=== PATIENT | male | born 1935 | race Caucasian/White ===

== ENCOUNTER → 2016-12-26 | Outpatient (CLI) | payer BC ==
[~2016-12-26] MED LIST: ALL300 PO; CALC1CHW90 PO; CMD2 PO; CMD3 PO; DONE1TAB26 PO; FLUC150T PO; METO50TA17 PO; ZCR40 PO
[2016-12-26 09:13] LABS: PROTHROMBIN TIME (PATIENT) 21.5 SECONDS (9.0-12.0)
== END ==
LOC: C.LABCC 08:08
PROVIDERS: ATTEND Internal Medicine
DX: I48.91 Unspecified atrial fibrillation (principal)

== ENCOUNTER → 2016-12-27 | Outpatient (CLI) | payer BC ==
[2016-12-27 09:11] LABS: INR 2.5 (0.9-1.1); PROTHROMBIN TIME (PATIENT) 27.7 SECONDS (9.0-12.0)
[2016-12-27 09:12] LABS: BLOOD UREA NITROGEN 22 mg/dl (7-18); BUN/CREATININE RATIO 15.4 (10-20); CALCIUM 8.9 mg/dl (8.5-10.1); CARBON DIOXIDE 25 mmol/L (21-32); CHLORIDE 112 mmol/L (98-107); GLUCOSE 95 mg/dl (70-99); POTASSIUM 3.5 mmol/L (3.5-5.1); SODIUM 142 mmol/L (136-145)
== END ==
LOC: C.LABCC 07:45
PROVIDERS: ATTEND Internal Medicine
DX: I48.91 Unspecified atrial fibrillation (principal); R60.9 Edema, unspecified; I42.9 Cardiomyopathy, unspecified

== ENCOUNTER → 2016-12-30 | Outpatient (CLI) | payer BC ==
[2016-12-30 11:02] LABS: BLOOD UREA NITROGEN 28 mg/dl (7-18); BUN/CREATININE RATIO 18.4 (10-20); CALCIUM 8.7 mg/dl (8.5-10.1); CARBON DIOXIDE 24 mmol/L (21-32); CHLORIDE 113 mmol/L (98-107); GLUCOSE 92 mg/dl (70-99); POTASSIUM 3.6 mmol/L (3.5-5.1); SODIUM 147 mmol/L (136-145)
[2016-12-30 11:33] LABS: ESTIMATED AVERAGE GLUCOSE 123 mg/dl; HA1C FLAG Normal (Normal)
== END ==
LOC: C.LABCC 09:35
PROVIDERS: ATTEND Internal Medicine
DX: E11.9 Type 2 diabetes mellitus without complications (principal); I10 Essential (primary) hypertension

== ENCOUNTER → 2017-01-03 | Outpatient (CLI) | payer BC ==
[2017-01-03 08:33] LABS: PROTHROMBIN TIME (PATIENT) 73.6 SECONDS (9.0-12.0)
[2017-01-03 08:48] LABS: INR 6.4 (0.9-1.1)
== END ==
LOC: C.LABCC 08:07
PROVIDERS: ATTEND Internal Medicine
DX: I48.91 Unspecified atrial fibrillation (principal)

== ENCOUNTER → 2017-01-04 | Outpatient (CLI) | payer BC ==
[2017-01-04 10:53] LABS: INR 1.9 (0.9-1.1); PROTHROMBIN TIME (PATIENT) 21.4 SECONDS (9.0-12.0)
== END ==
LOC: C.LABCC 09:04
PROVIDERS: ATTEND Internal Medicine
DX: I48.91 Unspecified atrial fibrillation (principal); R79.1 Abnormal coagulation profile

== ENCOUNTER → 2017-01-06 | Outpatient (CLI) | payer BC ==
[2017-01-06 08:29] LABS: BLOOD UREA NITROGEN 36 mg/dl (7-18); CALCIUM 8.7 mg/dl (8.5-10.1); CARBON DIOXIDE 24 mmol/L (21-32); CHLORIDE 112 mmol/L (98-107); GLUCOSE 106 mg/dl (70-99); SODIUM 143 mmol/L (136-145)
[2017-01-06 08:38] LABS: PROTHROMBIN TIME (PATIENT) 21.7 SECONDS (9.0-12.0)
== END ==
LOC: C.LABCC 07:57
PROVIDERS: ATTEND Internal Medicine
DX: I48.91 Unspecified atrial fibrillation (principal); R60.0 Localized edema; I10 Essential (primary) hypertension

== ENCOUNTER → 2017-01-09 | Outpatient (CLI) | payer BC ==
[2017-01-09 09:11] LABS: PROTHROMBIN TIME (PATIENT) 22.6 SECONDS (9.0-12.0)
== END ==
LOC: C.LABCC 08:38
PROVIDERS: ATTEND Internal Medicine
DX: I48.91 Unspecified atrial fibrillation (principal)

== ENCOUNTER → 2017-01-14 | Outpatient (CLI) | payer BC ==
[2017-01-14 08:32] LABS: BLOOD UREA NITROGEN 32 mg/dl (7-18); GLUCOSE 154 mg/dl (70-99)
[2017-01-14 08:33] LABS: BUN/CREATININE RATIO 24.7 (10-20); CALCIUM 9.1 mg/dl (8.5-10.1); CARBON DIOXIDE 23 mmol/L (21-32); CHLORIDE 109 mmol/L (98-107); POTASSIUM 3.6 mmol/L (3.5-5.1); SODIUM 141 mmol/L (136-145)
== END ==
LOC: C.LABCC 07:43
PROVIDERS: ATTEND Internal Medicine
DX: R60.9 Edema, unspecified (principal)

== ENCOUNTER → 2017-01-17 | Outpatient (CLI) | payer BC ==
[2017-01-17 08:19] LABS: PROTHROMBIN TIME (PATIENT) 21.7 SECONDS (9.0-12.0)
== END ==
LOC: C.LABCC 07:57
PROVIDERS: ATTEND Internal Medicine
DX: I48.91 Unspecified atrial fibrillation (principal)

== ENCOUNTER → 2017-01-24 | Outpatient (CLI) | payer BC ==
[2017-01-24 09:03] LABS: CHOLESTEROL/HDL RATIO 3.8; THYROID STIMULATING HORMONE 2.39 uIu/ml (0.300-4.500)
== END ==
LOC: C.LABCC 08:20
PROVIDERS: ATTEND Internal Medicine
DX: E03.9 Hypothyroidism, unspecified (principal); E78.5 Hyperlipidemia, unspecified

== ENCOUNTER → 2017-01-28 | Outpatient (CLI) | payer BC ==
[2017-01-28 08:09] LABS: INR 3.8 (0.9-1.1); PROTHROMBIN TIME (PATIENT) 42.5 SECONDS (9.0-12.0)
== END ==
LOC: C.LABCC 07:41
PROVIDERS: ATTEND Internal Medicine
DX: I48.91 Unspecified atrial fibrillation (principal)

== ENCOUNTER → 2017-01-30 | Outpatient (CLI) | payer BC ==
[2017-01-30 09:58] LABS: INR 2.5 (0.9-1.1); PROTHROMBIN TIME (PATIENT) 27.4 SECONDS (9.0-12.0)
== END ==
LOC: C.LABCC 08:58
PROVIDERS: ATTEND Internal Medicine
DX: I48.91 Unspecified atrial fibrillation (principal)

== ENCOUNTER → 2017-02-03 | Outpatient (CLI) | payer BC ==
[2017-02-03 09:29] LABS: INR 1.6 (0.9-1.1); PROTHROMBIN TIME (PATIENT) 17.7 SECONDS (9.0-12.0)
== END ==
LOC: C.LABCC 08:56
PROVIDERS: ATTEND Internal Medicine
DX: I48.91 Unspecified atrial fibrillation (principal)

== ENCOUNTER → 2017-02-05 | Outpatient (CLI) | payer BC ==
[2017-02-05 09:24] LABS: INR 1.4 (0.9-1.1); PROTHROMBIN TIME (PATIENT) 15.3 SECONDS (9.0-12.0)
== END ==
LOC: C.LABCC 08:37
PROVIDERS: ATTEND Internal Medicine
DX: I48.91 Unspecified atrial fibrillation (principal)

== ENCOUNTER → 2017-02-20 | Outpatient (CLI) | payer BC ==
[2017-02-20 08:42] LABS: INR 1.5 (0.9-1.1); PROTHROMBIN TIME (PATIENT) 16.8 SECONDS (9.0-12.0)
== END ==
LOC: C.LABCC 08:14
PROVIDERS: ATTEND Internal Medicine
DX: I48.91 Unspecified atrial fibrillation (principal)

== ENCOUNTER → 2017-02-27 | Outpatient (CLI) | payer BC ==
[2017-02-27 09:13] LABS: INR 2.4 (0.9-1.1); PROTHROMBIN TIME (PATIENT) 26.8 SECONDS (9.0-12.0)
== END ==
LOC: C.LABCC 08:28
PROVIDERS: ATTEND Internal Medicine
DX: I48.91 Unspecified atrial fibrillation (principal)

== ENCOUNTER → 2017-03-04 | Outpatient (CLI) | payer BC ==
[2017-03-04 08:42] LABS: INR 2.3 (0.9-1.1); PROTHROMBIN TIME (PATIENT) 25.8 SECONDS (9.0-12.0)
== END ==
LOC: C.LABCC 08:01
PROVIDERS: ATTEND Internal Medicine
DX: Z79.01 Long term (current) use of anticoagulants (principal)

== ENCOUNTER → 2017-03-19 | Outpatient (CLI) | payer BC ==
[2017-03-19 08:59] LABS: INR 1.5 (0.9-1.1); PROTHROMBIN TIME (PATIENT) 16.1 SECONDS (9.0-12.0)
== END ==
LOC: C.LABCC 08:23
PROVIDERS: ATTEND Internal Medicine
DX: I48.91 Unspecified atrial fibrillation (principal)

== ENCOUNTER → 2017-03-26 | Outpatient (CLI) | payer BC ==
[2017-03-26 08:47] LABS: PROTHROMBIN TIME (PATIENT) 30.9 SECONDS (9.0-12.0)
== END ==
LOC: C.LABCC 08:19
PROVIDERS: ATTEND Internal Medicine
DX: I48.91 Unspecified atrial fibrillation (principal)

== ENCOUNTER → 2017-04-03 | Outpatient (CLI) | payer BC ==
[~2017-04-03] MED LIST changes: +ACET325T96 PO; +ASCO500T16 PO; +ATOR-24 PO; +BISA10SU38 PR; +CARB25TA12 PO; +CHOL1000 PO; +CYAN100020 PO; +FURO-85 PO; +LEVO75TA PO; +LIQUID PROTEIN PO; +MOML PO; +MULTTAB63 PO; +NMN10 PO; +POTA20IN PO; +PRNJ PO; +SERT50TA PO; +SODIENE PR; +WARF4TAB PO
[2017-04-03 08:32] LABS: PROTHROMBIN TIME (PATIENT) 44.8 SECONDS (9.0-12.0)
[2017-04-03 08:44] LABS: INR 4.4 (0.9-1.1)
== END ==
LOC: C.LABCC 08:07
PROVIDERS: ATTEND Internal Medicine
DX: I48.1 Persistent atrial fibrillation (principal)

== ENCOUNTER 2017-04-08 07:22 | Emergency (ER) | payer BC ==
[~2017-04-08] VITALS: Ht 182.9 cm; Wt 97.8 kg
[~2017-04-08 07:22] MED LIST changes: -ACET325T96 PO; -ASCO500T16 PO; -ATOR-24 PO; -BISA10SU38 PR; -CARB25TA12 PO; -CHOL1000 PO; -CYAN100020 PO; -FURO-85 PO; -LEVO75TA PO; -LIQUID PROTEIN PO; -MOML PO; -MULTTAB63 PO; -NMN10 PO; -POTA20IN PO; -PRNJ PO; -SERT50TA PO; -SODIENE PR; -WARF4TAB PO
[2017-04-08 07:30] VITALS: O2SAT 98
[2017-04-08] MEDS ORDERED: METOPROLOL TARTRATE 1 MG/ML VIAL IV STA ×2 (07:32→07:56)
[2017-04-08 07:42] LABS: BASO % 0.3 %; BASO ABS # 0.02 K/uL (0-0.2); COMPLETE YES; EOS % 0.1 %; HEMATOCRIT 32.9 % (42-52); IG% 0.3 %; LYMPH % 6.9 %; LYMPH ABS # 0.54 K/uL (1.2-3.4); MEAN CELL VOLUME 92.9 fL (80-100); MEAN CORPUSCULAR HEMOGLOBIN 29.9 pg (25-34); MEAN CORPUSCULAR HGB CONC 32.2 g/dl (32-36); MEAN PLATELET VOLUME 10.5 fL (7.4-10.4); MONO % 1.7 %; NEUT % 90.7 %; PLATELET COUNT 226 K/uL (130-400); RED BLOOD COUNT 3.54 M/uL (4.7-6.1); WHITE BLOOD COUNT 7.85 K/uL (4.8-10.8)
--- NOTE | 2017-04-08 07:52 | EMERGENCY ROOM VISIT NOTE ---
History Report prepared by Toni: Kyalie John Under the Supervision of: Dr. Michelet Hatfield M.D. First contact with patient: 07:23 Stated Complaint: STROKE SYMPTOMS History of Present Illness The patient is a 82 year old male who presents to the Emergency Room with complaints of constant unresponsiveness with last known well time 10 hours DIRECTOR OF MATERIALS MANAGEMENT. The patient resides at [facility]. The nursing staff notes he fell 16 hours ago and they did "neuro checks" on him until 9 pm last night, about 10 hours DIRECTOR OF MATERIALS MANAGEMENT. The nursing staff found him unresponsive 1 hour DIRECTOR OF MATERIALS MANAGEMENT. The patient is noted as "full resuscitation." He is currently taking Coumadin. HPI is limited secondary to unresponsiveness. Source of History: nursing staff Onset: last known well 10 hours DIRECTOR OF MATERIALS MANAGEMENT Position: other (global ) Quality: other (unresponsiveness) Timing: constant Note: The patient is unresponsive. Review of Systems ROS is limited secondary to unresponsiveness. Past Medical & Surgical No pertinent past medical or past surgical history obtained secondary to unresponsiveness. Family History No pertinent family history obtained secondary to unresponsiveness. Social History Smoking Status: Former Smoker Marital Status: Housing Status: jail Occupation Status: retired Current/Historical Medications Scheduled Allopurinol (Allopurinol), 300 MG PO QAM Ascorbic Acid (Ascorbic Acid), 500 MG PO BID Atorvastatin (Lipitor), 40 MG PO HS Bisacodyl (Dulcolax), 1 SUPP IL UD Carbidopa/Levodopa (Sinemet 25MG/100MG), 0.5 TAB PO Q12 Cholecalciferol (Vitamin D3), 1,000 UNIT PO QAM Cyanocobalamin (Vitamin B12), 1,000 MCG PO QAM Levothyroxine Sodium (Synthroid), 75 MCG PO QAM Magnesium Hydroxide (Milk Of Magnesia), 30 ML PO UD Memantine (Namenda), 10 MG PO BID Metoprolol Tartrate (Metoprolol Tartrate), 50 MG PO BID Multiple Vitamins W/ Minerals (Therems M), 1 TAB PO DAILY Potassium Chloride (Potassium Chloride), 15 ML PO QAM Sertraline (Zoloft), 50 MG PO QAM Warfarin Sod (Coumadin), 2 MG PO SUN,MON,WED,FRI,SAT Warfarin Sodium (Coumadin), 4 MG PO TUE&THUR [Liquid Protein], 30 ML PO BID Scheduled PRN Acetaminophen Tab (Tylenol), 650 MG PO Q6H PRN for Pain Furosemide (Lasix), 20 MG PO Q2D PRN for EDEMA Prune Juice (Prune Juice ), 8 OZ PO UD PRN for Constipation Sodium Phosphate/Biphosphate (Fleet Enema), 1 EA IL UD PRN for Constipation Allergies Coded Allergies: No Known Allergies (Unverified , 04/08/17) Physical Exam Vital Signs Date Time Temp Pulse Resp B/P (MAP) Pulse Ox O2 Delivery O2 Flow Rate FiO2 04/08/17 10:04 96 18 114/89 100 04/08/17 10:04 98 18 114/87 100 04/08/17 09:37 100 125/81 100 Ambu-Bag 04/08/17 08:42 97 14 165/90 97 Room Air 04/08/17 08:42 101 10 98 04/08/17 08:37 109 6 98 04/08/17 08:32 116 18 165/90 95 04/08/17 08:27 99 10 155/121 96 04/08/17 08:25 90 14 155/121 96 Room Air 04/08/17 08:22 110 15 95 04/08/17 08:22 96 04/08/17 08:19 95 16 177/84 96 Room Air 04/08/17 08:17 96 8 177/84 97 04/08/17 08:12 104 14 170/104 96 Room Air 04/08/17 08:12 98 8 170/104 96 04/08/17 08:07 36.7 96 18 167/111 96 Room Air 04/08/17 08:07 106 10 98 04/08/17 08:05 173/117 04/08/17 08:02 94 13 95 04/08/17 07:57 127 22 165/111 96 04/08/17 07:56 113 18 165/111 99 Room Air 04/08/17 07:52 132 12 95 04/08/17 07:52 130 18 173/103 94 Room Air 04/08/17 07:50 110 173/103 04/08/17 07:48 173/103 04/08/17 07:47 112 16 04/08/17 07:32 112 04/08/17 07:32 113 12 163/93 04/08/17 07:30 154/107 04/08/17 07:30 98 Room Air Physical Exam GENERAL: Patient is in no acute distress. HEENT: No acute trauma, normocephalic atraumatic, mucous membranes moist, no nasal congestion, no scleral icterus. PERRL NECK: No stridor, no adenopathy, no meningismus, trachea is midline. LUNGS: Clear to auscultation bilaterally when listening anterior, no wheeze, no rhonchi, breath sounds equal. HEART: Irregular and tachycardic. No murmurs ABDOMEN: Soft, nontender, bowel sounds positive, no hernias, no peritonitis. EXTREMITIES: No cyanosis or edema, full range of motion of all the joints without pain or difficulty, no signs for acute trauma. NEUROLOGIC: Localizes to pain with left arm, eyes closed and somnolent, seems to spontaneously move left arm and left leg, not the right side. Some rigidity to right arm and leg - not flaccid. Appears to have a right facial droop. SKIN: No rash, no jaundice, no diaphoresis. Medical Decision & Procedures ER Provider Diagnostic Interpretation: Radiology results as stated below per my review and radiologist interpretation: HEAD WITHOUT CONTRAST (CT) CT DOSE: 614.27 mGy.cm HISTORY: Mental status change Stroke TECHNIQUE: Multiaxial CT images of the head were performed without the use of intravenous contrast. A dose lowering technique was utilized adhering to the principles of ALARA. Comparison: None. Findings: The paranasal sinuses and mastoid air cells are clear. Evidence for an acute left-sided subdural hematoma. This appears to be moderately complex possibly indicative of acute combined with subacute components. There is a maximum dimension of 1.7 cm. There is evidence for interhemispheric subdural extension. There is also lefttentorial and left temporal extension. There is moderate midline shift to the right of 9 mm. There is partial effacement of the left lateral ventricular system. There is suggestion of a small developing a right-sided subdural. This is best seen transaxial image 21 with a maximum thickness of 5 mm. There is possibly of a trace amount subarachnoid extension. Impression: 1. Left and to a lesser extent right sided subdural hematomas. 2. Midline shift to the right of 9 mm. 3. Intracranial hemorrhage extends to the peritentorial and left temporal lobe regions, as well as interhemispheric subdural extension.. The above report was generated using voice recognition software. It may contain grammatical, syntax or spelling errors. Electronically signed by: Fawad Schneider M.D. 04/08/2017 7:50 AM Dictated Date/Time: 04/08/2017 7:44 AM CHEST ONE VIEW PORTABLE CLINICAL HISTORY: Stroke mental status change COMPARISON STUDY: No previous studies for comparison. FINDINGS: Mild pulmonary edema. Mild cardiomegaly. Diaphragms are smooth. Slight blunting lateral costophrenic angles. IMPRESSION: Congestive failure versus pulmonary edema. The above report was generated using voice recognition software. It may contain grammatical, syntax or spelling errors. Electronically signed by: Fawad Schneider M.D. 04/08/2017 8:03 AM Dictated Date/Time: 04/08/2017 8:03 AM Laboratory Results 04/08/17 07:00 Red Blood Count 3.54, Mean Corpuscular Volume 92.9, Mean Corpuscular Hemoglobin 29.9, Mean Corpuscular Hemoglobin Concent 32.2, Mean Platelet Volume 10.5, Neutrophils (%) (Auto) 90.7, Lymphocytes (%) (Auto) 6.9, Monocytes (%) (Auto) 1.7, Eosinophils (%) (Auto) 0.1, Basophils (%) (Auto) 0.3, Neutrophils # (Auto) 7.13, Lymphocytes # (Auto) 0.54, Monocytes # (Auto) 0.13, Eosinophils # (Auto) 0.01, Basophils # (Auto) 0.02 04/08/17 07:00 Test 04/08/17 07:00 04/08/17 07:36 04/08/17 07:47 04/08/17 07:50 White Blood Count 7.85 K/uL (4.8-10.8) Red Blood Count 3.54 M/uL (4.7-6.1) Hemoglobin 10.6 g/dL (14.0-18.0) Hematocrit 32.9 % (42-52) Mean Corpuscular Volume 92.9 fL (80-100) Mean Corpuscular Hemoglobin 29.9 pg (25-34) Mean Corpuscular Hemoglobin Concent 32.2 g/dl (32-36) Platelet Count 226 K/uL (130-400) Mean Platelet Volume 10.5 fL (7.4-10.4) Neutrophils (%) (Auto) 90.7 % Lymphocytes (%) (Auto) 6.9 % Monocytes (%) (Auto) 1.7 % Eosinophils (%) (Auto) 0.1 % Basophils (%) (Auto) 0.3 % Neutrophils # (Auto) 7.13 K/uL (1.4-6.5) Lymphocytes # (Auto) 0.54 K/uL (1.2-3.4) Monocytes # (Auto) 0.13 K/uL (0.11-0.59) Eosinophils # (Auto) 0.01 K/uL (0-0.5) Basophils # (Auto) 0.02 K/uL (0-0.2) RDW Standard Deviation 54.6 fL (36.4-46.3) RDW Coefficient of Variation 16.2 % (11.5-14.5) Immature Granulocyte % (Auto) 0.3 % Immature Granulocyte # (Auto) 0.02 K/uL (0.00-0.02) Prothrombin Time 27.8 SECONDS (9.0-12.0) Prothromb Time International Ratio 2.7 (0.9-1.1) Activated Partial Thromboplast Time 37.8 SECONDS (21.0-31.0) Partial Thromboplastin Ratio 1.5 Estimated GFR () 69.3 Estimated GFR (Non- 59.8 BUN/Creatinine Ratio 20.8 (10-20) Calcium Level 8.5 mg/dl (8.5-10.1) Magnesium Level 2.2 mg/dl (1.8-2.4) Total Bilirubin 1.1 mg/dl (0.2-1) Direct Bilirubin 0.3 mg/dl (0-0.2) Aspartate Amino Transf (AST/SGOT) 18 U/L (15-37) Alanine Aminotransferase (ALT/SGPT) 12 U/L (12-78) Alkaline Phosphatase 114 U/L (45-117) Total Creatine Kinase 31 U/L (39-308) Creatine Kinase MB 0.6 ng/ml (0.5-3.6) Creatine Kinase MB Ratio 1.9 (0-3.0) Troponin I < 0.015 ng/ml (0-0.045) Total Protein 7.6 gm/dl (6.4-8.2) Albumin 2.9 gm/dl (3.4-5.0) Bedside Prothrombin Time INR 3.6 (0.9-1.1) Bedside Glucose 159 mg/dl (70-99) Urine Color YELLOW Urine Appearance CLEAR (CLEAR) Urine pH 6.0 (4.5-7.5) Urine Specific Rice 1.022 (1.000-1.030) Urine Protein 1+ (NEG) Urine Glucose (UA) NEG (NEG) Urine Ketones 1+ (NEG) Urine Occult Blood TRACE (NEG) Urine Nitrite POS (NEG) Urine Bilirubin NEG (NEG) Urine Urobilinogen NEG (NEG) Urine Leukocyte Esterase SMALL (NEG) Urine WBC (Auto) 10-30 /hpf (0-5) Urine RBC (Auto) 0-4 /hpf (0-4) Urine Hyaline Casts (Auto) 1-5 /lpf (0-5) Urine Epithelial Cells (Auto) 0-5 /lpf (0-5) Urine Bacteria (Auto) 2+ (NEG) Test 04/08/17 08:07 Bedside Hemoglobin 10.5 g/dl (14.0-18.0) Bedside Hematocrit 31 % (42-52) Bedside Sodium 146 mEq/L (135-144) Bedside Potassium 3.5 mEq/L (3.3-5.0) Bedside Chloride 110 mEq/L (101-112) Bedside Total CO2 23 mEq/l (24-31) Anion Gap 18.0 mmol/L (16-25) Bedside Blood Urea Nitrogen 22 mg/dl (7-18) Bedside Creatinine 1.1 mg/dl (0.6-1.3) Bedside Glucose (other) 166 mg/dl (70-99) Bedside Ionized Calcium (Giovanny) 1.16 mmol/l (1.12-1.32) Laboratory results reviewed by me. Medications Administered Medications (Trade) Dose Ordered Sig/Maryan Route Start Time Stop Time Status Last Admin Dose Admin Metoprolol Tartrate (Lopressor Iv) 5 mg NOW STAT IV 04/08/17 07:32 04/08/17 07:34 DC 04/08/17 07:50 5 MG Phytonadione 10 mg/Sodium Chloride 51 ml @ 102 mls/hr ONE ONCE IV 04/08/17 08:00 04/08/17 08:29 DC 04/08/17 08:09 102 MLS/HR Metoprolol Tartrate (Lopressor Iv) 10 mg NOW STAT IV 04/08/17 07:56 04/08/17 07:57 DC 04/08/17 08:22 5 MG Prothrombin Complex Concent (Human) 2500 unit/ Syringe 100 ml @ 10 mls/min TODAY@0800 IV 04/08/17 08:00 04/08/17 10:35 DC 04/08/17 08:11 10 MLS/MIN Levetiracetam 1000 mg/Dextrose 110 ml @ 420 mls/hr NOW STAT IV 04/08/17 08:15 04/08/17 08:30 DC 04/08/17 08:25 420 MLS/HR Propofol (Diprivan Iv Emulsion 100ml Vial) 1 dose STK-MED ONCE IV 04/08/17 09:19 04/08/17 09:20 DC 04/08/17 09:19 1 DOSE Miscellaneous Information (Nursing Verbal Med Order) 1 ea ONE ONCE N/A 04/08/17 09:30 04/08/17 09:31 DC 04/08/17 09:33 1 EA ECG Indication: other (unresponsiveness) Rate (beats per minute): 127 Rhythm: atrial fibrillation Findings: no acute ischemic change (No obvious acute ischemic changes ), other (Significant baseline artifact) ED Course 0727: The patient was evaluated in room A2. A complete history and physical exam was performed. 0732: Ordered Metoprolol Tartrate 5 mg IV 0750: I reassessed the patient at this time. I spoke with the patient's . I discussed the results and treatment plan with the patient's . I answered all pertaining questions that the had. The expressed understanding and verbalized agreement. The patient will be transferred to [facility]. 0756: Ordered Metoprolol Tartrate 5 mg IV 0800: Ordered Phytonadione 10 mg/Sodium Chloride 51 ml @ 102 mls/hr IV 0807: I spoke with Dr. Rust [place] neurosurgeon. We discussed the patients case. He agrees with the treatment plan. He accepted the patient for transfer. 0815: Ordered Levetiracetam 110 ml @ 420 mls/hr IV 0820: I reassessed the patient at this time. His vitals have improved. 0851: I reassessed the patient at this time. Patient will be transferred. 0915: I reassessed the patient at this time. Patient is being transferred at this time. Medical Decision The patient is a 82 year old male who presents to the ED with complaints of unresponsiveness. Differential diagnoses considered include intracranial bleeding, stroke, infection, electrolyte imbalance, anemia, pneumonia, and UTI. There is no leukocytosis or concerning anemia. No significant electrolyte abnormality, kidney failure or hepatitis. EKG shows a rapid A. fib, no acute ischemia. Cardiac enzyme testing times one is not consistent with acute cardiac injury. Chest film shows presumed CHF versus chronic parenchymal congestion. No pneumonia. Brain CT shows a subdural hematoma on the left with about 9 mm of midline shift. There was some subarachnoid blood noted as well. Urinalysis is suggestive of infection, urine culture is pending. INR is elevated at around 3. The patient presents with a change in mental status, he is on Coumadin and suffered a fall last evening. He has intracranial bleeding which I think explains the mental status change. The patient was aggressively managed. He received IV vitamin K and IV PCC. He did receive IV Lopressor to aid in heart rate and blood pressure control. I spoke to the neurosurgeon at [place]. The patient is being sent there by helicopter. He will likely require surgical intervention for the subdural hematoma. The neurosurgeon did ask for the addition of IV Keppra, no other intervention here in our ER was felt emergent/needed. The patient was maintaining his airway nicely, there was no drop of the O2 saturation. His blood pressure and heart rate improved with the Lopressor. I had a long talk with the patient's , she is aware of the circumstances. The helicopter crew arrived and did decide to intubate the patient prior to transport. This apparently was accomplished without incident. Head Trauma GCS Score: 8 Medication Reconcilliation Current Medication List: was personally reviewed by me Blood Pressure Screening Patient's blood pressure: Elevated blood pressure Blood pressure disposition: Referred to PCP Consults Time Called: 075 Consulting Physician: [place] [facility] neurosurgeon Returned Call: [phone] I spoke with [place] [facility] neurosurgeon. We discussed the patients case. He agrees with the treatment plan. He accepted the patient for transfer. Impression Primary Impression: Subdural hematoma Additional Impressions: Change in mental status Coagulopathy Rapid atrial fibrillation Critical Care I have personally spent greater than 43 minutes of critical care time in the direct management of this patient. This includes bedside care, interpretation of diagnostic studies, and testing, discussion with consultants, patient, and family members, and other required patient management activities. This 43 minutes is in excess of all separately billable procedures. Scribe Attestation The scribe's documentation has been prepared under my direction and personally reviewed by me in its entirety. I confirm that the note above accurately reflects all work, treatment, procedures, and medical decision making performed by me. Departure Information Dispostion Transfer Acute Care Facility Referrals [place], Juan (PCP) Problem Qualifiers
[2017-04-08 07:54] LABS: INR 2.7 (0.9-1.1); PARTIAL THROMBOPLASTIN RATIO 1.5; PROTHROMBIN TIME (PATIENT) 27.8 SECONDS (9.0-12.0)
[2017-04-08 08:00] LABS: ALT/SGPT 12 U/L (12-78); BLOOD UREA NITROGEN 24 mg/dl (7-18); BUN/CREATININE RATIO 20.8 (10-20); CALCIUM 8.5 mg/dl (8.5-10.1); CARBON DIOXIDE 24 mmol/L (21-32); CHLORIDE 110 mmol/L (98-107); CREATININE 1.15 mg/dl (0.60-1.40); GLUCOSE 163 mg/dl (70-99); MAGNESIUM 2.2 mg/dl (1.8-2.4); POTASSIUM 3.2 mmol/L (3.5-5.1); SODIUM 144 mmol/L (136-145)
[2017-04-08] MEDS ORDERED: ACET325T96 PO (08:00)
[2017-04-08] MEDS ORDERED: PRNJ PO (08:00)
[2017-04-08] MEDS ORDERED: PHYTONADIONE INJ 10 MG in SODIUM CHLORIDE 0.9% 50ML 50 ML IV ONE (08:00)
[2017-04-08] MEDS ORDERED: PROTHROMBIN COMP CONC- KCENTRA 2,500 UNIT in SYRINGE 0 ML IV SCH (08:00)
[2017-04-08] MEDS ORDERED: LIQUID PROTEIN PO (08:00)
[2017-04-08] MEDS ORDERED: MOML PO (08:04)
[2017-04-08] MEDS ORDERED: SERT50TA PO (08:04)
[2017-04-08 08:05] LABS: ALKALINE PHOSPHATASE 114 U/L (45-117); AST/SGOT 18 U/L (15-37); CKMB/CK RATIO 1.9 (0-3.0)
--- NOTE | 2017-04-08 08:05 | DIAGNOSTIC IMAGING REPORT ---
CHEST ONE VIEW PORTABLE CLINICAL HISTORY: Stroke mental status change COMPARISON STUDY: No previous studies for comparison. FINDINGS: Mild pulmonary edema. Mild cardiomegaly. Diaphragms are smooth. Slight blunting lateral costophrenic angles. IMPRESSION: Congestive failure versus pulmonary edema. The above report was generated using voice recognition software. It may contain grammatical, syntax or spelling errors. Electronically signed by: Fawad Schneider M.D. 04/08/2017 8:03 AM Dictated Date/Time: 04/08/2017 8:03 AM
[2017-04-08] MEDS ORDERED: ASCO500T16 PO (08:06)
[2017-04-08] MEDS ORDERED: CHOL1000 PO (08:06)
[2017-04-08] MEDS ORDERED: MULTTAB63 PO (08:06)
[2017-04-08] MEDS ORDERED: CYAN100020 PO (08:06)
[2017-04-08 08:07] VITALS: TEMP 36.7; Ht 182.9 cm; Wt 97.8 kg
[2017-04-08] MEDS ORDERED: ATOR-24 PO (08:08)
[2017-04-08] MEDS ORDERED: CARB25TA12 PO (08:10)
[2017-04-08] MEDS ORDERED: WARF4TAB PO (08:13)
[2017-04-08] MEDS ORDERED: LEVETIRACETAM IV 1,000 MG in DEXTROSE 5% 100ML 100 ML IV STA (08:15)
[2017-04-08] MEDS ORDERED: BISA10SU38 PR (08:17)
[2017-04-08] MEDS ORDERED: POTA20IN PO (08:17)
[2017-04-08] MEDS ORDERED: SODIENE PR (08:17)
[2017-04-08] MEDS ORDERED: FURO-85 PO (08:17)
[2017-04-08] MEDS ORDERED: NMN10 PO (08:18)
[2017-04-08] MEDS ORDERED: LEVO75TA PO (08:18)
[2017-04-08 08:20] LABS: ISTAT CREATININE 1.1 mg/dl (0.6-1.3); ISTAT HEMOGLOBIN 10.5 g/dl (14.0-18.0); ISTAT IONIZED CALCIUM 1.16 mmol/l (1.12-1.32)
[2017-04-08 08:40] LABS: URINE APPEARANCE CLEAR (CLEAR); URINE BILIRUBIN NEG (NEG); URINE COLOR YELLOW; URINE EPITHELIAL CELL AUTO 0-5 /lpf (0-5); URINE NITRITE POS (NEG); URINE SPECIFIC GRAVITY 1.022 (1.000-1.030); UROBILINOGEN NEG (NEG); ZZURINE CULT IF INDIC CATH YES
[2017-04-08 08:46] LABS: MANUAL MICROSCOPIC REQUIRED? NO; REVIEW REQ? NO
[2017-04-08] MEDS ORDERED: PROPOFOL IV EMULSION 10 MG/ML 100 ML VIAL IV ONE (09:19)
[2017-04-08] MEDS ORDERED: NURSING VERBAL MED ORDER ONE (09:30)
--- NOTE | 2017-04-08 09:57 | DIAGNOSTIC IMAGING REPORT ---
CHEST ONE VIEW PORTABLE CLINICAL HISTORY: post intubation tube position COMPARISON STUDY: 04/08/2017 7:54 AM FINDINGS: Endotracheal tube positioned 3 cm above the clark. Unchanged findings of congestive failure versus pulmonary edema. Heart remains moderately enlarged. IMPRESSION: Endotracheal tube positioned 3 cm above the clark. Unchanged findings of congestive failure/pulmonary edema. The above report was generated using voice recognition software. It may contain grammatical, syntax or spelling errors. Electronically signed by: Fawad Schneider M.D. 04/08/2017 9:56 AM Dictated Date/Time: 04/08/2017 9:55 AM
[2017-04-08 10:04] VITALS: BP 114/89; PULSE 96; O2SAT 100
--- NOTE | 2017-04-11 13:07 | Pharmacy Progress Note ---
ED Pharmacist Culture FollowUp Date of Service: Apr 11, 2017. 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 Patient was transferred to [facility]. I called and spoke to the patient's nurse Keri and faxed the culture result ([phone]). She stated she would page the [facility] physicians and if they deemed treatment was warranted she would call back with that information.
== END 2017-04-08 10:06 | disposition short-term general hospital (02) ==
LOC: EDBD 07:22 → C.EDA 07:23
DX: S06.5X9A Traumatic subdural hemorrhage with loss of consciousness of unspecified duration, initial encounter (principal); W19.XXXA Unspecified fall, initial encounter; I48.91 Unspecified atrial fibrillation; D68.9 Coagulation defect, unspecified; Z87.891 Personal history of nicotine dependence; Z79.01 Long term (current) use of anticoagulants; Z79.899 Other long term (current) drug therapy